=== PATIENT | male | born 1995 | race Caucasian/White ===

== ENCOUNTER 2016-09-23 13:10 | Emergency (ER) | payer MEDICAID ==
--- NOTE | 2016-09-23 13:22 | EDPHY ---
H & P Time Seen by Provider: 09/23/16 13:11 HPI/ROS: CHIEF COMPLAINT: Low back pain HISTORY OF PRESENT ILLNESS: The patient is a 21-year-old homeless man who comes to the emergency department complaining of chronic low back pain. He points to the lumbar region just left of his spine. He states that he fractured his back 10 years ago falling off of a katerina. He did not require surgery. He does not have a spinal specialist. He is not currently taking any medications but has been doing methamphetamine and marijuana over the last couple of days to help control the pain. He does not have any bowel or bladder abnormalities. He is able to ambulate. He does not have any weakness or numbness or paresthesias. He has not had any new injuries. He does not have any fevers or recent infections. REVIEW OF SYSTEMS: Constitutional: denies: chills, fever, recent illness, recent injury EENTM: denies: blurred vision, double vision, nose congestion Respiratory: denies: cough, shortness of breath Cardiac: denies: chest pain, irregular heart rate, lightheadedness, palpitations Gastrointestinal/Abdominal: denies: abdominal pain, diarrhea, nausea, vomiting, blood streaked stools Genitourinary: denies: dysuria, frequency, hematuria, pain Musculoskeletal: See HPI Skin: denies: lesions, rash, jaundice, bruising Neurological: denies: headache, numbness, paresthesia, tingling, dizziness, weakness Hematologic/Lymphatic: denies: blood clots, easy bleeding, easy bruising Immunologic/allergic: denies: HIV/AIDS, transplant EXAM: GENERAL: Dirty, disheveled HEAD: Atraumatic, normocephalic. EYES: Pupils equal round and reactive to light, extraocular movements intact, sclera anicteric, conjunctiva are normal. ENT: TMs normal, nares patent, oropharynx clear without exudates. Moist mucous membranes. NECK: Normal range of motion, supple without lymphadenopathy or JVD. LUNGS: Breath sounds clear to auscultation bilaterally and equal. No wheezes rales or rhonchi. HEART: Regular rate and rhythm without murmurs, rubs or gallops. ABDOMEN: Soft, nontender, normoactive bowel sounds. No guarding, no rebound. No masses appreciated. BACK: Low back pain lateral to midline, no step-offs or deformities appreciable. Tenderness with massage of muscle. No hematoma. EXTREMITIES: Normal range of motion, no pitting or edema. No clubbing or cyanosis. NEUROLOGICAL: Cranial nerves II through XII grossly intact. Normal speech, normal gait. Normal reflexes, 5/5 strength, normal movement in all extremities , normal sensation PSYCH: Normal mood, normal affect. SKIN: Warm, dry, normal turgor, no visible rashes or lesions. Source: Patient, EMS Exam Limitations: No limitations - Personal History Tetanus Vaccine Date: >10 years - Medical/Surgical History Hx Asthma: Yes Hx Chronic Respiratory Disease: No Hx Diabetes: No Hx Cardiac Disease: No Hx Renal Disease: No Hx Cirrhosis: No Hx Alcoholism: No Hx HIV/AIDS: No Hx Splenectomy or Spleen Trauma: No Other PMH: hand surgery placment of "metal plate in both hands". left knee surgery w rods. Asthma. Pt reports different areas of body that have plates and rods at different ER visits - Family History Significant Family History: No pertinent family hx - Social History Smoking Status: Current every day smoker Alcohol Use: Occasionally Drug Use: Marijuana, Other Constitutional: Initial Vital Signs Temperature (C) 36.9 C 09/23/16 13:19 Heart Rate 115 H 09/23/16 13:19 Respiratory Rate 20 09/23/16 13:19 Blood Pressure 129/78 H 09/23/16 13:19 O2 Sat (%) 95 09/23/16 13:19 O2 Delivery Mode Room Air Allergies/Adverse Reactions: arango Allergy (Uncoded 06/24/16 21:10) Home Medications: Medication Instructions Recorded Qvar 05/24/16 Lidocaine 5% [Lidoderm 5% Patch 1 ea TD DAILY #7 patch 09/23/16 (*)] Medical Decision Making ED Course/Re-evaluation: The patient denies to me ever having any kind of spinal surgery and is actually quite psychotic about it because there are no scars visible although it is listed in his medical history. It appears that in the past there has been some inconsistencies in where he may have various orthopedic appliances. I discussed with him the fact that I will not treat with narcotics. I offered Tylenol ibuprofen or Lidoderm patch or steroids. The patient would prefer Lidoderm patch. We will place it in the ER and I will have him follow up with a spinal specialist. He has no neurologic deficits on exam. 2:00 p.m. the patient is able to ambulate without any difficulty. Differential Diagnosis: Partial list of the Differential diagnosis considered include but were not limited to; low back pain, radiculopathy and although unlikely based on the history and physical exam, I also considered cord compression, abscess, infection, diskitis, fracture. I discussed these differential diagnoses and the plan with the patient as well as the usual and expected course. The patient understands that the diagnosis is provisional and that in medicine we are not always correct and that further workup is often warranted. Usual and customary warnings were given. All of the patient's questions were answered. The patient was instructed to return to the emergency department should the symptoms at all worsen or return, otherwise to followup with the physician as we discussed. - Data Points Medications Given: Discontinued Medications Lidocaine (Lidoderm 5%) 1 ea TD EDNOW ONE Stop: 09/23/16 14:01 Last Admin: 09/23/16 13:44 Dose: 1 ea Miscellaneous Information (Patch Removal) 1 ea TD DAILY21 KARO Stop: 03/22/17 20:59 Last Admin: 09/23/16 13:46 Dose: Not Given Departure - Departure Disposition: Home, Routine, Self-Care Clinical Impression: Low back pain Qualifiers: Chronicity: chronic Back pain laterality: left Sciatica presence: without sciatica Qualified Code(s): M54.5 - Low back pain Condition: Fair Instructions: Chronic Back Pain (ED), Lower Back Exercises (ED) Referrals: Prasanna Lal PA [Physician Allergist/Immunologist] - As per Instructions Prescriptions: Lidocaine 5% [Lidoderm 5% Patch (*)] 1 ea TD DAILY #7 patch
[2016-09-23] MEDS ORDERED: LIDOCAINE 5% 1 EA PATCH TD SCH (13:30)
[2016-09-23] MEDS ORDERED: LIDOCAINE 5% 1 EA PATCH TD ONE (14:00)
[2016-09-23 14:01] VITALS: BP 123/79; PULSE 98; RESP 18; TEMP 98.1; O2SAT 97
[2016-09-23] MEDS ORDERED: PATCH REMOVAL 1 EA PATCH TD SCH (21:00)
== END 2016-09-23 14:00 | disposition home or self-care (01) ==
LOC: EDUNIT#
DX: M54.5 Low back pain (principal); J45.909 Unspecified asthma, uncomplicated; F17.200 Nicotine dependence, unspecified, uncomplicated; G89.29 Other chronic pain

== ENCOUNTER 2016-09-28 07:50 | Emergency (ER) | payer MEDICAID ==
--- NOTE | 2016-09-28 07:47 | EDPHY ---
H & P Constitutional: Initial Vital Signs Temperature (C) 36.6 C 09/28/16 07:55 Heart Rate 78 09/28/16 07:55 Respiratory Rate 16 09/28/16 07:55 Blood Pressure 136/89 H 09/28/16 07:55 O2 Sat (%) 97 09/28/16 07:55 O2 Delivery Mode Room Air Allergies/Adverse Reactions: arango Allergy (Uncoded 06/24/16 21:10) Home Medications: Medication Instructions Recorded Qvar 05/24/16 Lidocaine 5% [Lidoderm 5% Patch 1 ea TD DAILY #7 patch 09/23/16 (*)] Medical Decision Making ED Course/Re-evaluation: CHIEF COMPLAINT: "extreme lower back pain" HISTORY OF PRESENT ILLNESS: The patient is a 21 y/o male, with a history of chronic back pain, complaining of lower back pain onset this morning. He says his "whole body" hurts and does not describe radiation, weakness, or paresthesias. He says he usually treats his pain successfully by smoking marijuana. He was seen here 5 days ago with the same complaint and discharged with Lidoderm patches. He refused NSAIDs and steroids at that visit. He denies recent IV drug use. REVIEW OF SYSTEMS: A 10 point review of systems was performed and is negative with the exception of the elements mentioned in the history of present illness. PHYSICAL EXAM: HR, BP, O2 Sat, RR. Temp noted General Appearance: Alert, well hydrated, appropriate, and non-toxic appearing. Extremely malodorous. Head: Atraumatic without scalp tenderness or obvious injury Eyes: Pupils equal, round, reactive to light and accommodation, EOMI, no trauma , no injection. Ears: Clear bilaterally, no perforation, normal landmarks Nose: Atraumatic, no rhinorrhea, clear. Throat: There is no erythema or exudates, no lesions, normal tonsils, mucus membranes moist. Neck: Supple, nontender, no lymphadenopathy. Respiratory: No retractions, no distress, no wheezes, and no accessory muscle use. Lungs are clear to auscultation bilaterally. Cardiovascular: Regular rate and rhythm, no murmurs, rubs, or gallops. Good capillary refill all extremities. Gastrointestinal: Abdomen is soft, nontender, non-distended, no masses, no rebound, no guarding, no peritoneal signs. Musculoskeletal: Normal active ROM of all extremities, atraumatic. Neurological: Alert, appropriate, and interactive. The patient has normal DTRs and non-focal cranial nerves, motor, sensory, and cerebellar exam. Skin: No rashes, good turgor, no nodules on palpation. Past medical history: Chronic pain, asthma Past surgical history: Unsubstantiated report of several ortho surgeries without apparent surgical scars. Family history: noncontributory Social history: Homeless, marijuana use Prior medical history reviewed including ED visit 09/23/16 for the same complaint. DIFFERENTIAL DIAGNOSIS: The differential diagnosis for the patient's back pain included but was not limited to chronic musculoskeletal pain, epidural abscess, herniated disk, spinal fracture, and intra-abdominal causes including urinary system. MEDICAL DECISION MAKING: This is a homeless 21 y/o male with a history of chronic back pain returning for the second time this week complaining of back pain. His pain is not reproducible on exam. He denies radiculopathy or saddle anesthesia. He is neurovascularly intact. He has been able to walk without assistance here in the ED and received 600mg PO ibuprofen for pain. He has no indication for imaging. He will be discharged with a diagnosis of chronic back pain and a small prescription for [place]. He's been informed he needs to follow up with [facility] for chronic pain management. I will not re-prescribe more Lidoderm patches as the prescription is still active indicating he never filled it. He agrees with plan. - Data Points Medications Given: Discontinued Medications Hydrocodone Bitart/Acetaminophen ([place] 5/325mg Prepack#6) 1 btl [facility] ONE Stop: 09/28/16 07:58 Last Admin: 09/28/16 08:03 Dose: 1 btl Departure - Departure Disposition: Home, Routine, Self-Care Clinical Impression: Chronic lower back pain Qualifiers: Back pain laterality: bilateral Sciatica presence: without sciatica Qualified Code(s): M54.5 - Low back pain Condition: Good Instructions: Hydrocodone/Acetaminophen (By mouth), Chronic Back Pain (ED) Additional Instructions: Use the Lidoderm patches previously prescribed to you for pain. You've been given a small prescription for Vicodin to use if needed for severe pain. Follow up with a primary care provider to establish care this week. Referrals: NONE *PRIMARY CARE P,. [Primary Care Provider] - As per Instructions [facility],. [Clinic] - As per Instructions Report Scribed for: Grover Jo Report Scribed by: Krystal Cooley Date of Report: 09/28/16 Time of Report: 07:58
[2016-09-28 07:57] VITALS: BP 136/89; PULSE 78; RESP 16; TEMP 97.9; O2SAT 97
[2016-09-28] MEDS ORDERED: HYDROCOD/APAP 5/325 PREPACK#6 BTL TAKEHOME ONE (07:57)
[2016-09-28] MEDS ORDERED: IBUPROFEN 800 MG TAB PO ONE (07:57)
[2016-09-28] MEDS ORDERED: IBUPROFEN 600 MG TAB PO ONE (08:01)
[2016-09-28] MEDS ORDERED: IBUPROFEN 200 MG TAB PO ONE (08:01)
== END 2016-09-28 08:13 | disposition home or self-care (01) ==
LOC: EDUNIT#
DX: M54.5 Low back pain (principal); G89.29 Other chronic pain